=== PATIENT | female | born 1970 | race Caucasian/White ===

== ENCOUNTER 2019-12-26 07:59 | Day surgery (SDC) | payer OTHER ==
[2019-12-23 12:44] VITALS: BMI 33.7
[2019-12-26] MEDS ORDERED: PROPOFOL 200 MG/20 ML VIAL ONE (08:59)
[2019-12-26] MEDS ORDERED: Dexamethasone 20 MG/5 ML VIAL ONE (08:59)
[2019-12-26] MEDS ORDERED: Ketorolac Tromethamine 30 MG/ML VIAL ONE ×2 (08:59→14:23)
[2019-12-26] MEDS ORDERED: Lidocaine 1% PF 5 ML VIAL ONE (08:59)
[2019-12-26] MEDS ORDERED: Ondansetron PF 4 MG/2 ML Vial ONE (08:59)
[2019-12-26] MEDS ORDERED: Fentanyl 100 MCG/2 ML VIAL ONE ×3 (09:53→13:45)
[2019-12-26] MEDS ORDERED: Midazolam HCl 2 mg/2 ml Vial ONE (09:53)
[2019-12-26] MEDS ORDERED: Sodium Chloride 0.9% 10 ML ONE (09:57)
[2019-12-26] MEDS ORDERED: Bupivacaine PF 0.5% 30 ML VIAL ONE (09:57)
[2019-12-26] MEDS ORDERED: Bacitracin Zinc Ointment 30 gm TUBE ONE (09:57)
[2019-12-26] MEDS ORDERED: Betamet Acet/Betamet Na Ph 30 MG/5 ML VIAL ONE (11:15)
[2019-12-26] MEDS ORDERED: HYDROcodone/Acetaminophen 5/325 mg Tablet ONE (15:05)
--- NOTE | 2019-12-28 09:21 | OP ---
DATE OF PROCEDURE: 12/26/2019 PREOPERATIVE DIAGNOSES: 1. At the right side: a. Right carpal tunnel syndrome. b. Right pronator tunnel syndrome. 2. At the left side: a. Left carpal tunnel syndrome. b. Left pronator teres syndrome. POSTOPERATIVE DIAGNOSES AND FINDINGS: On the right side, 1. Tight transverse carpal ligament with 1 cm area with stippling and no hourglass formation. 2. Very tight arcade fascia, and level of the pronator of the median nerve proximal forearm. 3. Tourniquet time on the right side 42 minutes; left side 38. 4. On the right side, injection with 30 mL total, 20 at the performed procedure and 10 at the carpal tunnel. The same distribution at the left side procedures. 5. Estimated blood loss on the left 10 mL and on the right 10 mL. 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 This operation is scheduled to eliminate the compressive neuropathy in both sites. DESCRIPTION OF PROCEDURE: After successful general endotracheal anesthesia, both limbs were prepped and draped simultaneously, so we had the whole We put bilateral sterile tourniquets on. We then outlined the zigzag incision slightly more medial and at the distal portion of the antecubital fossa and central in line with the palmaris and at the midportion. We outlined a mini carpal tunnel incision in line with the ring finger medial, lateral and as far distal as Peoples's cardinal line for approximately 5 mm distal to the volar wrist flexion crease. We approached the right side first. After applying a sterile tourniquet, we exsanguinated the limb, inflated the tourniquet to 250 mmHg pressure. We then were able to make a zigzag incision at the proximal forearm over the pronator region, carried through skin and subcutaneous tissue with combination of sharp and blunt dissection, preserved all and as much as possible cutaneous nerve branches. We then localized the interval between the radial artery, far radial and the radial neurovascular bundle and we were able to dissect distally into this incision, find the tear of the pronator teres and released it with a Z-lengthening. We then had to find hemostasis and we were able to do so. In the proximal aspect of the wound, we then found the median nerve, at this time dissected between the flexor pronator muscles and the radially based neurovascular bundle. Once we had done this, we found the median nerve high in the incision, removed several fascial bands until we got to the alternating arcade which we elevated and released completely under direct visualization. The arcade was released, just before the point where there was bifurcation of the nerve into the anterior osseous being the only branch of the nerve extended radially. We then freed up all the muscular branches, finished the release of the pronator fascia, and in person we were able to establish a complete release to include the fascia bands and one leash of vessels. Now, we placed Celestone 5 mL in drip technique over the neuroplasty median nerve at the forearm/proximal forearm. Then, we performed soft tissue release superficially and then placed a moist Ray-Marilu. The patient now had attention turned to the transverse carpal ligament on the same right side. The incision was carried through skin and subcutaneous tissue as outlined previously and did not cross the volar wrist flexion crease, indeed was 5 mm distal to it. We carried through skin and subcutaneous tissue, visualized the palmaris longus through the center palmaris longus, identified the underlying transverse carpal ligament, entered this from the midportion distally until we saw the nerve structures and then from the midpoint distally. We then used a combination of visualization and blunt and sharp techniques to elevate the entire transverse carpal ligament, especially the midportion distally and from the midportion proximally. No evidence of underlying masses were seen and the patient had Celestone drip care as it had been done at the pronator level and then we released the tourniquet and obtained excellent hemostasis. The carpal tunnel incision was closed in interrupted 4-0 nylon mattress pattern. The pronator teres incision was closed with a running 4-0 Monocryl undyed and a 3-0 nylon in interrupted mattress pattern. It also was immaculate. She left the operative room and had between 3/10 and 4/10 pain in recovery and was prepared for discharge. Job ID: [id number]
== END 2019-12-26 16:05 | disposition home or self-care (01) ==
LOC: SDC 07:59
PROVIDERS: ATTEND Orthopaedic Surgery Hand Surgery
PROC: 01N50ZZ Release Median Nerve, Open Approach (ICD-10-PCS; principal; 2019-12-26)
DX: G56.13 Other lesions of median nerve, bilateral upper limbs (principal); G56.03 Carpal tunnel syndrome, bilateral upper limbs; Z79.899 Other long term (current) drug therapy; Z91.048 Other nonmedicinal substance allergy status
CPT/HCPCS: J0690; J0702; J1885; J2250; J3010; J3490; S0020

== ENCOUNTER 2021-11-16 08:00 | Outpatient (CLI) | payer BC | END 2021-11-16 08:01 | disposition home or self-care (01) | LOC: BICMAMMO 08:00 | PROVIDERS: ATTEND Family Medicine | DX: Z12.31 Encounter for screening mammogram for malignant neoplasm of breast (principal); Z91.89 Other specified personal risk factors, not elsewhere classified | CPT/HCPCS: 77063; 77067 ==

== ENCOUNTER 2024-03-17 10:58 | Outpatient (CLI) | payer BC | END 2024-03-17 10:59 | disposition home or self-care (01) | LOC: BICMAMMO 10:58 | PROVIDERS: ATTEND Family Medicine | DX: Z12.31 Encounter for screening mammogram for malignant neoplasm of breast (principal); Z91.89 Other specified personal risk factors, not elsewhere classified | CPT/HCPCS: 77063; 77067 ==

== ENCOUNTER 2025-01-01 09:10 | Outpatient (CLI) | payer BC ==
[2025-01-01] MEDS ORDERED: Barium Sulfate 96% 176 GM BOT (xray ONLY) ONE (09:24)
[2025-01-01] MEDS ORDERED: E-Z-HD 98% W/W 340GM BOT (x-ray ONLY) ONE (09:24)
== END 2025-01-01 09:11 | disposition home or self-care (01) ==
LOC: RAD 09:10
PROVIDERS: ATTEND Internal Medicine Gastroenterology
DX: R13.10 Dysphagia, unspecified (principal); R63.4 Abnormal weight loss; Z96.698 Presence of other orthopedic joint implants
CPT/HCPCS: 74220